=== PATIENT | female | born 1995 | race Caucasian/White ===

== ENCOUNTER 2018-04-21 13:42 | Emergency (ER) | payer OTHER ==
[2018-04-21] MEDS ORDERED: KETOROLAC TROMETHAMINE INJ/PF 30 MG/1 ML SDV IM ONE (14:38)
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
[2018-04-21 15:36] VITALS: BP 137/84
== END 2018-04-21 15:59 | disposition home or self-care (01) ==
LOC: ER 13:42
DX: M54.5 Low back pain (principal)
CPT/HCPCS: 99284; 96372; 72110; J1885

== ENCOUNTER 2018-08-16 19:42 | Emergency (ER) | payer BC, OTHER ==
[2018-08-16 20:18] LABS: APPEARANCE,URINE CLEAR; BILIRUBIN,URINE NEGATIVE (NEGATIVE); COLOR,URINE STRAW; GLUCOSE, URINE NEGATIVE (NEGATIVE); KETONES,URINE NEGATIVE (NEGATIVE); LEUKOCYTE ESTERASE,URINE TRACE (NEGATIVE); NITRITE,URINE NEGATIVE (NEGATIVE); PROTEIN,URINE NEGATIVE (NEGATIVE); URINE SPECIFIC GRAVITY 1.003; UROBILINOGEN,URINE NEGATIVE mg/dL (<2.0)
[2018-08-16 20:19] LABS: ABSOLUTE EOSINOPHILS # (AUTO) 0.2 10^3/uL (0.0-0.6); ABSOLUTE LYMPHOCYTES (AUTO) 2.1 10^3/uL (0.5-4.7); ABSOLUTE MONOCYTES (AUTO) 0.6 10^3/uL (0.1-1.4); ABSOLUTE NEUT (AUTO) 8.2 10^3/uL (1.7-8.2); BASOPHILS % (AUTO) 0.2 % (0-2); EOSINOPHILS % (AUTO) 1.5 % (0-6); LYMPHOCYTES % (AUTO) 18.8 % (13-45); MEAN CORPUSCULAR HGB CONC 34.1 g/dL (32.0-36.0); MEAN CORPUSCULAR VOLUME 91 fl (80-97); MONOCYTES % (AUTO) 5.6 % (3-13); PLATELET COUNT 173 10^3/uL (150-450); RED BLOOD COUNT 4.51 10^6/uL (3.72-5.28); RED CELL DISTRIBUTION WIDTH 12.9 % (11.5-14.0); SEGMENTED NEUTROPHILS % (AUTO) 73.9 % (42-78); TOTAL CELLS COUNTED % (AUTO) 100 %
--- NOTE | 2018-08-16 20:20 | ER Document Report ---
ED Medical Screen (RME) - General Chief Complaint: Vag Bleeding, +preg <12wks Stated Complaint: VAGINAL BLEEDING Time Seen by Provider: 08/16/18 20:18 Mode of Arrival: Ambulatory Information source: Patient TRAVEL OUTSIDE OF THE U[place] IN LAST 30 DAYS: No - HPI Patient complains to provider of: ; bleeding Onset: Just prior to arrival - pt. is approx 6 wks who had some vaginal bleeding earlier this afternoon. Denies pain. - Related Data Allergies/Adverse Reactions: No Known Allergies Allergy (Verified 04/21/18 13:43) Past Medical History Renal/ Medical History: Denies: Hx Peritoneal Dialysis Physical Exam - Vital signs Vitals: Temp Pulse Resp BP Pulse Ox 98.7 F 72 16 123/76 100 08/16/18 20:14 08/16/18 20:14 08/16/18 20:14 08/16/18 20:14 08/16/18 20:14 Course - Vital Signs Vital signs: Temp Pulse Resp BP Pulse Ox 98.7 F 72 16 123/76 100 08/16/18 20:14 08/16/18 20:14 08/16/18 20:14 08/16/18 20:14 08/16/18 20:14 - Laboratory Result Diagrams: 08/16/18 19:55
--- NOTE | 2018-08-16 20:28 | ER Document Report ---
ED General - General Chief Complaint: Vag Bleeding, +preg <12wks Stated Complaint: VAGINAL BLEEDING Time Seen by Provider: 08/16/18 20:18 Mode of Arrival: Ambulatory Notes: Patient is a 23-year-old female, approximately 9 weeks gravid that presents to the emergency department for chief complaint of vaginal bleeding. Patient states she started having vaginal bleeding approximately 2 hours ago, and has since stopped, she did not consider it a lot of bleeding, but it concerned her enough, given that she is had a history of a miscarriage in the past. She believes her first date of her last menstrual period was approximately June 02, 2018. She denies noting any recent fevers, chills, night sweats, chest pain, shortness of breath, nausea or vomiting. She has had some urinary frequency, but denies dysuria or hematuria. Past Medical History: Denies chronic medical conditions Past Surgical History: Kidney surgery as a child Social History: Denies current tobacco, alcohol or drug use Family History: Reviewed and noncontributory for presenting illness Allergies: Reviewed, see documented allergy list. REVIEW OF SYSTEMS: Other than noted above, the 12 point review of systems was reviewed with the patient and were negative, all pertinent findings are included in the HPI. PHYSICAL EXAMINATION: Vital signs reviewed, nursing noted reviewed. GENERAL: Well-appearing, well-nourished and in no acute distress. HEAD: Atraumatic, normocephalic. EYES: Eyes appear normal, extraocular movements intact, sclera anicteric, conjunctiva are normal. ENT: nares patent, oropharynx clear without exudates. Moist mucous membranes. NECK: Normal range of motion, supple without lymphadenopathy LUNGS: Breath sounds clear to auscultation bilaterally and equal. No wheezes rales or rhonchi. HEART: Regular rate and rhythm without murmurs ABDOMEN: Soft, nontender, normoactive bowel sounds. No rebound, guarding, or rigidity. No masses appreciated. EXTREMITIES: Nontender, good range of motion, no pitting or edema. NEUROLOGICAL: No focal neurological deficits. Moves all extremities spontaneously Motor and sensory grossly intact on exam. PSYCH: Normal mood, normal affect. SKIN: Warm, Dry, normal turgor, no rashes or lesions noted on exposed skin TRAVEL OUTSIDE OF THE [place] IN LAST 30 DAYS: No - Related Data Allergies/Adverse Reactions: No Known Allergies Allergy (Verified 04/21/18 13:43) Past Medical History - General Information source: Patient - Social History Smoking Status: Never Smoker Frequency of alcohol use: None Drug Abuse: None Family History: Reviewed & Not Pertinent Patient has suicidal ideation: No Patient has homicidal ideation: No Renal/ Medical History: Denies: Hx Peritoneal Dialysis Physical Exam - Vital signs Vitals: Temp Pulse Resp BP Pulse Ox 98.7 F 72 16 123/76 100 08/16/18 20:14 08/16/18 20:14 08/16/18 20:14 08/16/18 20:14 08/16/18 20:14 Course - Re-evaluation Re-evalutation: Patient seen and examined vital signs reviewed. Laboratory data and imaging were ordered as appropriate for the patient's presenting symptoms and complaint, with consideration of any critical or life threatening conditions that may be associated with their obtained history and exam as noted above. Patient was treated with Keflex 500 mg, and RhoGam Results were reviewed when available and demonstrated normal 9-week intrauterine , on ultrasound, patient is O-, therefore given RhoGam as noted above, her UA demonstrated leukocyte esterase, rare bacteria, will treat with Keflex for 5 days, twice daily The patient was re-evaluated and was stable, had no complaints bleeding had stopped Evaluation was most consistent with bleeding of early , UTI Results were discussed with the patient at this point, after careful consideration I feel that that patient can be discharged from the emergency department, the patient was educated treatments and reasons to return to the emergency department based on their presumed diagnosis as noted above, they were advised to followup with a primary care physician in 2-3 days. Patient was agreeable to plan of care. *Note is created using voice recognition software and may contain spelling, syntax or grammatical errors. Laboratory 08/16/18 08/16/18 08/16/18 19:55 19:55 19:55 WBC 11.0 H RBC 4.51 Hgb 14.0 Hct 41.0 MCV 91 MCH 31.0 MCHC 34.1 RDW 12.9 Plt Count 173 Seg Neutrophils % 73.9 Lymphocytes % 18.8 Monocytes % 5.6 Eosinophils % 1.5 Basophils % 0.2 Absolute Neutrophils 8.2 Absolute Lymphocytes 2.1 Absolute Monocytes 0.6 Absolute Eosinophils 0.2 Absolute Basophils 0.0 Urine Color STRAW Urine Appearance CLEAR Urine pH 5.0 Ur Specific [place] 1.003 Urine Protein NEGATIVE Urine Glucose (UA) NEGATIVE Urine Ketones NEGATIVE Urine Blood LARGE H Urine Nitrite NEGATIVE Urine Bilirubin NEGATIVE Urine Urobilinogen NEGATIVE Ur Leukocyte Esterase TRACE H Urine WBC (Auto) 3 Urine RBC (Auto) 13 Urine Bacteria (Auto) TRACE Squamous Epi Cells Auto 1 Urine Ascorbic Acid NEGATIVE Blood Type O NEGATIVE Antibody Screen NEGATIVE Rhogam Indicated RHOGAM REQUESTED Transvaginal US 08/16/18 20:18 IMPRESSION: Single viable IUP of nine weeks and zero days. - Vital Signs Vital signs: Temp Pulse Resp BP Pulse Ox 98.7 F 72 16 123/76 100 08/16/18 20:14 08/16/18 20:14 08/16/18 20:14 08/16/18 20:14 08/16/18 20:14 - Laboratory Result Diagrams: 08/16/18 19:55 Laboratory results interpreted by me: 08/16/18 08/16/18 19:55 19:55 WBC 11.0 H Urine Blood LARGE H Ur Leukocyte Esterase TRACE H Discharge - Discharge Clinical Impression: Vaginal bleeding in patient at less than 20 weeks gestation UTI (urinary tract infection) Qualifiers: Urinary tract infection type: site unspecified Hematuria presence: with hematuria Qualified Code(s): N39.0 - Urinary tract infection, site not specified Condition: Stable Disposition: HOME, SELF-CARE Instructions: Bleeding During Early ([facility]), Rhogam ([facility]), Urinary Tract Infection ([facility]) Additional Instructions: Please follow-up with RN ER, call for an appointment, please monitor for increased bleeding, or severe cramping, or persistent nausea or vomiting. Please take the antibiotics as prescribed. Prescriptions: Cephalexin Monohydrate [Keflex 500 mg Capsule] 500 mg PO BID 5 Days #10 capsule Referrals: [facility] [Provider Group] - Follow up in 3-5 days
[2018-08-16] MEDS ORDERED: CEPHALEXIN 500 MG CAPSULE PO ONE (20:55)
--- NOTE | 2018-08-16 21:13 | RADIOLOGY REPORT (SQ) ---
EXAM DESCRIPTION: US TRANSVAGINAL COMPLETED DATE/TME: 08/16/2018 20:18 CLINICAL HISTORY: 23 years, Female, ; bleeding Findings: Uterus is anteverted and measures 10.2 x 8.2 x 6.1 cm. Single viable IUP is noted. Estimated gestational age 9 weeks and zero days. No abnormal adnexal masses. Maternal ovaries appear within normal limits. Cervix is closed and measures 3.3 cm. heart rate measures 158 bpm. IMPRESSION: Single viable IUP of nine weeks and zero days.
[2018-08-16 22:06] VITALS: BP 122/72
== END 2018-08-16 22:10 | disposition home or self-care (01) ==
LOC: ER 19:42
DX: O20.9 Hemorrhage in early pregnancy, unspecified (principal); O23.41 Unspecified infection of urinary tract in pregnancy, first trimester; O36.0910 Maternal care for other rhesus isoimmunization, first trimester, not applicable or unspecified; Z3A.09 9 weeks gestation of pregnancy; Z87.59 Personal history of other complications of pregnancy, childbirth and the puerperium
CPT/HCPCS: 99284; 96372; 86900; 86901; 36415; 86850; 84702; 85025; 81001; 76817; 93976; J2790

== ENCOUNTER 2018-11-11 18:20 | Outpatient (CLI) | payer BC, OTHER ==
[2018-11-11 19:22] LABS: APPEARANCE,URINE CLEAR; BILIRUBIN,URINE NEGATIVE (NEGATIVE); COLOR,URINE STRAW; GLUCOSE, URINE NEGATIVE (NEGATIVE); KETONES,URINE NEGATIVE (NEGATIVE); LEUKOCYTE ESTERASE,URINE NEGATIVE (NEGATIVE); NITRITE,URINE NEGATIVE (NEGATIVE); PROTEIN,URINE NEGATIVE (NEGATIVE); URINE SPECIFIC GRAVITY 1.004; UROBILINOGEN,URINE NEGATIVE mg/dL (<2.0)
[2018-11-11 19:41] LABS: URINE AMPHETAMINES SCREEN NEGATIVE; URINE BARBITURATES SCREEN NEGATIVE; URINE BENZODIAZEPINES SCREEN NEGATIVE; URINE COCAINE SCREEN NEGATIVE; URINE MARIJUANA (THC) SCREEN NEGATIVE; URINE METHADONE SCREEN NEGATIVE; URINE PHENCYCLIDINE SCREEN NEGATIVE
--- NOTE | 2018-11-11 19:54 | RADIOLOGY REPORT (SQ) ---
EXAM DESCRIPTION: U/S OB LIMITED COMPLETED DATE/TIME: 11/11/2018 7:44 pm REASON FOR STUDY: cervical length pre term labor COMPARISON: None. TECHNIQUE: Limited transvaginal grayscale ultrasound for evaluation of specific requested obstetrica l parameters. LIMITATIONS: None. FINDINGS: CERVICAL LENGTH: 3.1 cm Closed. L PLAY[employer] TECHNICIAN: 4.1 cm. FHR: 145 beats per minute. PRESENTATION: Cephalic. PLACENTA: Not assessed ANATOMY: Not assessed OTHER: No other significant findings. IMPRESSION: LIMITED OBSTETRICAL ULTRASOUND WITH MEASURED PARAMETERS DELINEATED ABOVE. Trimester of : Second trimester - 13 weeks 1 day to 27 weeks 6 days. TECHNICAL DOCUMENTATION: JOB ID: [id number] [employer]- All Rights Reserved Reading location - IP/workstation name: [email or web address]
== END 2018-11-11 20:03 | disposition home or self-care (01) ==
LOC: LC 18:20
PROVIDERS: ATTEND Obstetrics & Gynecology
PROC: 4A1HXCZ Monitoring of Products of Conception, Cardiac Rate, External Approach (ICD-10-PCS; principal; 2018-11-11)
DX: O47.02 False labor before 37 completed weeks of gestation, second trimester (principal); Z3A.21 21 weeks gestation of pregnancy
CPT/HCPCS: 76815; 80307; 81001

== ENCOUNTER → 2018-12-09 | Outpatient (CLI) | payer BC, OTHER ==
--- NOTE | 2018-12-09 08:49 | [facility]OMENS [facility]AG[facility] REPORT ---
EXAM DESCRIPTION: U/S ABDOMEN LIMITED COMPLETED DATE/TIME: 12/09/2018 8:10 am REASON FOR STUDY: R10.11 RIGHT UPPER QUADRANT PAIN COMPARISON: None. TECHNIQUE: Dynamic and static grayscale images acquired of the abdomen and recorded on PACS. Additio nal selected color Doppler and spectral images recorded. LIMITATIONS: Evaluation of the aorta and inferior vena cava limited by 25 week gestational . FINDINGS: PANCREAS: No masses. Visualized pancreatic duct normal caliber. LIVER: Normal size. 17.7 cm. Normal echotexture. No masses. LIVER VASCULATURE: Normal directional flow of the main portal vein and hepatic veins. GALLBLADDER: No stones. Normal wall thickness. No pericholecystic fluid. ULTRASOUND-DETECTED ROSENTHAL'S SIGN: Negative. INTRAHEPATIC DUCTS AND COMMON DUCT: CBD and intrahepatic ducts normal caliber. No filling defects. INFERIOR VENA CAVA: Normal flow. AORTA: No aneurysm. RIGHT KIDNEY: Normal size. Normal echogenicity. No solid masses. 1.7 cm benign appearing cyst. PERITONEAL AND RIGHT PLEURAL SPACE: No ascites or effusions. OTHER: No other significant findings. IMPRESSION: No pathology identified. Evaluation of the aorta and inferior vena cava limited by preg jonathan -25 week gestation. TECHNICAL DOCUMENTATION: JOB ID: [id number] [employer]- All Rights Reserved Reading location - IP/workstation name: [email or web address]
== END ==
LOC: WI 07:31
PROVIDERS: ATTEND Obstetrics & Gynecology
DX: R10.11 Right upper quadrant pain (principal)
CPT/HCPCS: 76705

== ENCOUNTER 2019-01-12 11:39 | Outpatient (CLI) | payer BC, OTHER ==
[2019-01-12 12:45] LABS: AMORPHOUS SEDIMENT,URINE TRACE /HPF; APPEARANCE,URINE SLIGHTLY-CLOUDY; BILIRUBIN,URINE NEGATIVE (NEGATIVE); COLOR,URINE YELLOW; GLUCOSE, URINE NEGATIVE (NEGATIVE); KETONES,URINE NEGATIVE (NEGATIVE); LEUKOCYTE ESTERASE,URINE MODERATE (NEGATIVE); NITRITE,URINE NEGATIVE (NEGATIVE); PROTEIN,URINE NEGATIVE (NEGATIVE); URINE SPECIFIC GRAVITY 1.004; UROBILINOGEN,URINE NEGATIVE mg/dL (<2.0)
[2019-01-12 13:01] LABS: URINE AMPHETAMINES SCREEN NEGATIVE; URINE BARBITURATES SCREEN NEGATIVE; URINE BENZODIAZEPINES SCREEN NEGATIVE; URINE COCAINE SCREEN NEGATIVE; URINE MARIJUANA (THC) SCREEN NEGATIVE; URINE METHADONE SCREEN NEGATIVE; URINE PHENCYCLIDINE SCREEN NEGATIVE
--- NOTE | 2019-01-12 13:23 | RADIOLOGY REPORT (SQ) ---
EXAM DESCRIPTION: U/S OB LIMITED COMPLETED DATE/TIME: 01/12/2019 1:06 pm REASON FOR STUDY: contractions COMPARISON: 11/11/2018 TECHNIQUE: Limited transabdominal grayscale ultrasound for evaluation of specific requested obstetri gisel parameters. LIMITATIONS: None. FINDINGS: CERVICAL LENGTH: 2.3 cm. Closed. AURORA: 2.3 cm. FHR: 145 beats per minute. PRESENTATION: Cephalic. PLACENTA: Anterior grade 1. ANATOMY: Not assessed OTHER: No other significant findings. IMPRESSION: LIMITED OBSTETRICAL ULTRASOUND WITH MEASURED PARAMETERS DELINEATED ABOVE. Trimester of : Third trimester - 28 weeks to delivery. TECHNICAL DOCUMENTATION: JOB ID: [id number] [employer]- All Rights Reserved Reading location - IP/workstation name: [email or web address]
[2019-01-12] MEDS ORDERED: BETAMET ACET/BETAMET NA INJ 6 MG/1 ML IM ONE (15:11)
[2019-01-12] MEDS ORDERED: BETAMET ACET/BETAMET NA INJ 6 MG/1 ML ONE (15:16)
== END 2019-01-12 15:50 | disposition home or self-care (01) ==
LOC: LC 11:39
PROVIDERS: ATTEND Obstetrics & Gynecology Gynecology
PROC: 4A1HXCZ Monitoring of Products of Conception, Cardiac Rate, External Approach (ICD-10-PCS; principal; 2019-01-12)
DX: O47.03 False labor before 37 completed weeks of gestation, third trimester (principal); Z3A.30 30 weeks gestation of pregnancy
CPT/HCPCS: 59899; 96372; 81001; 80307; 76815; J0702

== ENCOUNTER 2019-01-13 15:11 | Outpatient (CLI) | payer BC, OTHER ==
[2019-01-13] MEDS ORDERED: BETAMET ACET/BETAMET NA INJ 6 MG/1 ML ONE (15:19)
[2019-01-13] MEDS ORDERED: BETAMET ACET/BETAMET NA INJ 6 MG/1 ML IM ONE (15:24)
== END 2019-01-13 15:52 | disposition home or self-care (01) ==
LOC: LC 15:11
PROVIDERS: ATTEND Obstetrics & Gynecology
DX: O47.03 False labor before 37 completed weeks of gestation, third trimester (principal); Z3A.30 30 weeks gestation of pregnancy
CPT/HCPCS: 96372; J0702

== ENCOUNTER 2019-01-14 16:43 | Outpatient (CLI) | payer BC, OTHER ==
[2019-01-14 20:46] LABS: APPEARANCE,URINE SLIGHTLY-CLOUDY; BILIRUBIN,URINE NEGATIVE (NEGATIVE); COLOR,URINE STRAW; GLUCOSE, URINE NEGATIVE (NEGATIVE); KETONES,URINE NEGATIVE (NEGATIVE); LEUKOCYTE ESTERASE,URINE MODERATE (NEGATIVE); NITRITE,URINE NEGATIVE (NEGATIVE); PROTEIN,URINE NEGATIVE (NEGATIVE); URINE SPECIFIC GRAVITY 1.002; UROBILINOGEN,URINE NEGATIVE mg/dL (<2.0)
[2019-01-14 20:57] LABS: URINE AMPHETAMINES SCREEN NEGATIVE; URINE BARBITURATES SCREEN NEGATIVE; URINE BENZODIAZEPINES SCREEN NEGATIVE; URINE COCAINE SCREEN NEGATIVE; URINE MARIJUANA (THC) SCREEN NEGATIVE; URINE METHADONE SCREEN NEGATIVE; URINE PHENCYCLIDINE SCREEN NEGATIVE
== END 2019-01-14 17:47 | disposition home or self-care (01) ==
LOC: LC 16:43
PROVIDERS: ATTEND Obstetrics & Gynecology
PROC: 4A1HXCZ Monitoring of Products of Conception, Cardiac Rate, External Approach (ICD-10-PCS; principal; 2019-01-14)
DX: O36.8130 Decreased fetal movements, third trimester, not applicable or unspecified (principal); Z3A.30 30 weeks gestation of pregnancy
CPT/HCPCS: 80307; 81001

== ENCOUNTER 2019-01-23 02:35 | Emergency (ER) | payer BC, OTHER ==
[2019-01-23 02:45] VITALS: BP 124/69
[2019-01-23] MEDS ORDERED: PENICILLIN V POTASSIUM 500 MG TABLET PO ONE (03:33)
--- NOTE | 2019-01-23 03:35 | ER Document Report ---
ED General - General Chief Complaint: Toothache Stated Complaint: TOOTHPAIN Time Seen by Provider: 01/23/19 03:26 Notes: She is a 24-year-old female presents with complaint of pain over her right lower premolar. She says that she has had issues with this to feel well. She is currently 32 weeks . She saw her dentist earlier in the week and was told that they cannot do anything for the tooth until after her delivery. She says tonight the pain become worse and therefore she came to the ER. No facial swelling. No neck swelling. No difficulty breathing or swallowing. No fevers. TRAVEL OUTSIDE OF THE [place] IN LAST 30 DAYS: No - Related Data Allergies/Adverse Reactions: No Known Allergies Allergy (Verified 01/14/19 16:59) Past Medical History - Social History Smoking Status: Never Smoker Frequency of alcohol use: None Drug Abuse: None Family History: Reviewed & Not Pertinent Renal/ Medical History: Denies: Hx Peritoneal Dialysis Review of Systems - Review of Systems Notes: My Normal Review Basic REVIEW OF SYSTEMS: CONSTITUTIONAL : Denies fever, chills, or sweats. Denies recent illness. EENT: Dental pain RESPIRATORY: Denies cough, cold, or chest congestion. Denies shortness of breath, difficulty breathing, or wheezing. NEUROLOGICAL: Denies altered mental status or loss of consciousness. Denies headache. ALL OTHER SYSTEMS REVIEWED AND NEGATIVE. Physical Exam - Vital signs Vitals: Temp Pulse Resp BP Pulse Ox 98.3 F 77 18 124/69 98 01/23/19 02:38 01/23/19 02:38 01/23/19 02:38 01/23/19 02:38 01/23/19 02:38 - Notes Notes: General Appearance: Well nourished, alert, cooperative, no acute distress, mild obvious discomfort. Well Appearing Vitals: reviewed, See vital signs table. Head: No swelling to the head or face. Eyes: PERRL, EOMI, Conjuctiva clear Mouth: No decreasd moisture. Patient has normal dentition in her mouth. She does have multiple fillings in her teeth. No gingival swelling. Throat: No tonsillar inflammation, No airway obstruction, No lymphadenopathy Neck: Supple, no neck tenderness, no neck swelling Neuro: speech clear, oriented x 3, normal affect, responds appropriately to questions. Course - Re-evaluation Re-evalutation: 01/23/19 07:12 Patient's incision looks okay but she is had worsening pain over the last 24 hours over her right lower premolar. She may have developed an infection at that dental root. We will place her on penicillin. Encouraged her to follow-up closely with her dentist. I encouraged her return to ER immediately if she has facial swelling, neck swelling, fevers, or feels unwell. Patient agrees with plan and will be discharged home. Dictation of this chart was performed using voice recognition software; therefore, there may be some unintended grammatical errors. - Vital Signs Vital signs: Temp Pulse Resp BP Pulse Ox 98.3 F 77 18 124/69 98 01/23/19 02:38 01/23/19 02:38 01/23/19 02:38 01/23/19 02:38 01/23/19 02:38 Discharge - Discharge Clinical Impression: Pain, dental Condition: Good Disposition: HOME, SELF-CARE Additional Instructions: Please take the penicillin as prescribed. Please continue take Tylenol for pa in. Return to ER immediately if you develop any swelling to the face or to the neck area, any difficulty breathing or swallowing, or any fevers. Please continue follow-up with your dentist. Prescriptions: Penicillin V Potassium [Penicillin Vk 500 mg Tablet] 500 mg PO BID #14 tablet
== END 2019-01-23 04:06 | disposition home or self-care (01) ==
LOC: ER 02:35
DX: O99.613 Diseases of the digestive system complicating pregnancy, third trimester (principal); K08.89 Other specified disorders of teeth and supporting structures; Z3A.32 32 weeks gestation of pregnancy
CPT/HCPCS: 99282

== ENCOUNTER 2019-02-16 22:21 | Outpatient (CLI) | payer BC, OTHER ==
[2019-02-16 23:04] LABS: APPEARANCE,URINE SLIGHTLY-CLOUDY; BILIRUBIN,URINE NEGATIVE (NEGATIVE); COLOR,URINE YELLOW; GLUCOSE, URINE NEGATIVE (NEGATIVE); KETONES,URINE NEGATIVE (NEGATIVE); LEUKOCYTE ESTERASE,URINE NEGATIVE (NEGATIVE); NITRITE,URINE NEGATIVE (NEGATIVE); PROTEIN,URINE NEGATIVE (NEGATIVE); URINE SPECIFIC GRAVITY 1.008; UROBILINOGEN,URINE NEGATIVE mg/dL (<2.0)
--- NOTE | 2019-02-16 23:19 | Non Stress Test Report ---
Non Stress Test Datetime Report Generated by CPN: 02/16/2019 23:19 DEMOGRAPHIC Test Number: 1 EGA NST: 35.2 INDICATION Indication for Study: Ordered by Provider MONITORING Monitor Explained: Monitor Explained; Test Explained; Patient Verbalized Understanding Time on Monitor: 02/16/2019 22:42 Time off Monitor: 02/16/2019 23:14 NST Duration: 32 NST INTERVENTIONS NST Interventions: PO Hydration Physician Notified NST: Dr. Delgado BABY A: [id number] BABY A Movement : Present Contraction Frequency : 0 FHR Baseline : 125 Accelerations : 15X15 Decelerations : None Variability : Moderate 6-25bpm NST Review: Meets Criteria for Reactive NST NST Review and Verified By : DANNY Zazueta NST Results: Reactive NST REPORT Report Trigger: Send Report
[2019-02-16 23:20] LABS: URINE AMPHETAMINES SCREEN NEGATIVE; URINE BARBITURATES SCREEN NEGATIVE; URINE BENZODIAZEPINES SCREEN NEGATIVE; URINE COCAINE SCREEN NEGATIVE; URINE MARIJUANA (THC) SCREEN NEGATIVE; URINE METHADONE SCREEN NEGATIVE; URINE PHENCYCLIDINE SCREEN NEGATIVE
== END 2019-02-16 23:30 | disposition home or self-care (01) ==
LOC: LC 22:21
PROVIDERS: ATTEND Obstetrics & Gynecology
PROC: 4A1HXCZ Monitoring of Products of Conception, Cardiac Rate, External Approach (ICD-10-PCS; principal; 2019-02-16)
DX: O47.03 False labor before 37 completed weeks of gestation, third trimester (principal); Z3A.35 35 weeks gestation of pregnancy
CPT/HCPCS: 59025; 80307; 81001

== ENCOUNTER 2019-03-14 11:52 | Emergency (ER) | payer BC, OTHER ==
[2019-03-14 12:38] VITALS: BP 148/72
--- NOTE | 2019-03-14 12:59 | ER Document Report ---
HPI - HPI Patient complains to provider of: rash Time Seen by Provider: 03/14/19 12:28 Pain Level: 0 Context: Patient is a 24-year-old female status post on 03/05 presents to the emergency department for a rash noted above her wound. States she has had this rash for the last 2 days. States it is itchy. Patient is denying any new contacts, lotions, detergents, animals or pets. Patient's denying any respiratory distress, vomiting, diarrhea. - CONSTITUTIONAL Constitutional: DENIES: Fever, Chills - EENT EENT: DENIES: Sore Throat, Ear Pain, Eye problems - NEURO Neurology: DENIES: Headache, Weakness, Vision blurred, Dizzinesss / Vertigo - CARDIOVASCULAR Cardiovascular: DENIES: Chest pain - RESPIRATORY Respiratory: DENIES: Trouble Breathing, Coughing - GASTROINTESTINAL Gastrointestinal: DENIES: Abdominal Pain, Black / Bloody Stools - URINARY Urinary: DENIES: Dysuria, Urgency, Frequency - REPRODUCTIVE Reproductive: DENIES: : - MUSCULOSKELETAL Musculoskeletal: DENIES: Extremity pain Past Medical History - General Information source: Patient - Social History Smoking Status: Unknown if Ever Smoked Chew tobacco use (# tins/day): No Frequency of alcohol use: None Drug Abuse: None Family History: Reviewed & Not Pertinent Patient has suicidal ideation: No Patient has homicidal ideation: No Renal/ Medical History: Denies: Hx Peritoneal Dialysis Past Surgical History: Reports: Hx Section, Hx Genitourinary Surgery - bilateral kidneys as child. Vertical Provider Document - CONSTITUTIONAL Agree With Documented VS: Yes Notes: GENERAL: Alert, interacts well. No acute distress. HEAD: Normocephalic, atraumatic. EYES: Pupils equal, round, and reactive to light. Extraocular movements intact. ENT: Oral mucosa moist, tongue midline. NECK: Full range of motion. Supple. Trachea midline. LUNGS: Clear to auscultation bilaterally, no wheezes, rales, or rhonchi. No respiratory distress. HEART: Regular rate and rhythm. No murmur ABDOMEN: Soft, non-tender. Non-distended. Bowel sounds present in all 4 quadrants. EXTREMITIES: Moves all 4 extremities spontaneously. No edema, normal radial and dorsalis pedis pulses bilaterally. No cyanosis. BACK: no cervical, thoracic, lumbar midline tenderness. No saddle anesthesia, normal distal neurovascular exam. NEUROLOGICAL: Alert and oriented x3. Normal speech. cranial nerves II through XII grossly intact PSYCH: Normal affect, normal mood. SKIN: Warm, dry, normal turgor. Well healing scar noted. Patient's lower abdomen has 4 areas of well demarcated urticarial type lesions. Consistent with a contact dermatitis. - INFECTION CONTROL TRAVEL OUTSIDE OF THE [place] IN LAST 30 DAYS: No Course - Re-evaluation Re-evalutation: 03/14/19 12:51 Patient's initial blood pressure was 157/90, repeat blood pressure was 148/72 manually. Patient states when she was discharged from the hospital after C- section she was told that her blood pressure was high. States she was told to follow-up with her [facility] for continued evaluation of her blood pressure. Patient states she has not followed up in the last week. Patient's denying any headache, lightheadedness, dizziness. States she has no history of hyper pressure prior to her . Patient states she has no blood pressure issues during her , was only noted to be hypertensive at discharge after . Discussed with patient importance of following up with her [facility] for continued monitoring of her blood pressure. Patient voices understanding. Patient's rash is consistent with a contact dermatitis, and have discussed with patient's need to evaluate what things her abdomen has possibly come in contact with in the last couple of days. Also discussed signs and symptoms of anaphylaxis and when to return to the emergency room. Patient voiced understanding, stable for discharge. - Vital Signs Vital signs: Temp Pulse Resp BP Pulse Ox 148/72 H 03/14/19 12:37 Discharge - Discharge Clinical Impression: Contact dermatitis Qualifiers: Contact dermatitis type: unspecified Contact dermatitis trigger: unspecified trigger Qualified Code(s): L25.9 - Unspecified contact dermatitis, unspecified cause Condition: Stable Disposition: HOME, SELF-CARE Instructions: Contact Dermatitis ([facility]) Additional Instructions: As we discussed you have been seen and treated in the emergency department for a rash on your abdomen. This rash appears to be a contact dermatitis. This means something your abdomen is, in contact with is producing a local irritation. Due to the fact you are breast-feeding you are very limited on what medications you can take orally. You can use topical hydrocortisone cream as needed for generalized itching. Your blood pressure was also noted to be elevated at today's visit. Please make sure you continue to follow-up with your [facility] for continued monitoring care of your high blood pressure. Please return to the emergency room for any other concerns. Forms: Elevated Blood Pressure Referrals: SINAN CAMPBELL MD [Primary Care Provider] - Follow up as needed
== END 2019-03-14 13:11 | disposition home or self-care (01) ==
LOC: ER 11:52
DX: O99.73 Diseases of the skin and subcutaneous tissue complicating the puerperium (principal); L25.9 Unspecified contact dermatitis, unspecified cause; Z98.890 Other specified postprocedural states
CPT/HCPCS: 99282